=== PATIENT | male | born 1955 | race Caucasian/White ===

== ENCOUNTER 2018-03-05 20:12 | Emergency (ER) | payer MEDICAID, OTHER ==
[~2018-03-05] VITALS: Ht 165.1 cm; Wt 59.0 kg
[~2018-03-05 20:12] MED LIST: ABIL10; FLUO-124
[2018-03-05] MEDS ORDERED: ACETAMINOPHEN 325MG TABLET PO ONE (23:15)
[2018-03-06 01:41] VITALS: BP 139/86
== END 2018-03-06 02:28 | disposition home or self-care (01) ==
LOC: ER 20:12
DX: S63.501A Unspecified sprain of right wrist, initial encounter (principal); F32.9 Major depressive disorder, single episode, unspecified; Z98.890 Other specified postprocedural states; X58.XXXA Exposure to other specified factors, initial encounter; Y93.89 Activity, other specified; Y92.89 Other specified places as the place of occurrence of the external cause; Y99.8 Other external cause status
CPT/HCPCS: 73110; 73130; 99284; Z7610

== ENCOUNTER 2018-07-14 10:55 | Emergency (ER) | payer OTHER ==
[~2018-07-14] VITALS: Ht 167.6 cm; Wt 75.0 kg
[2018-07-14 17:35] VITALS: BP 133/72
== END 2018-07-14 17:39 | disposition home or self-care (01) ==
LOC: ER 10:55
DX: Z04.8 Encounter for examination and observation for other specified reasons (principal); F99 Mental disorder, not otherwise specified; Z59.0 Homelessness
CPT/HCPCS: 99283